=== PATIENT | female | born 1980 | race Two or more races ===

== ENCOUNTER 2020-02-01 12:14 | Outpatient (CLI) | payer OTHER | END 2020-02-01 13:32 | disposition home or self-care (01) | LOC: NST 12:14 | PROVIDERS: ATTEND Obstetrics & Gynecology Maternal & Fetal Medicine | DX: Z34.83 Encounter for supervision of other normal pregnancy, third trimester (principal) ==

== ENCOUNTER 2020-02-04 09:46 | Outpatient (CLI) | payer OTHER | END 2020-02-04 14:14 | disposition home or self-care (01) | LOC: NST 09:46 | PROVIDERS: ATTEND Obstetrics & Gynecology Maternal & Fetal Medicine | DX: Z34.83 Encounter for supervision of other normal pregnancy, third trimester (principal) ==

== ENCOUNTER 2020-02-11 08:30 | Outpatient (CLI) | payer OTHER | END 2020-02-11 09:00 | disposition home or self-care (01) | LOC: NST 08:30 | PROVIDERS: ATTEND Obstetrics & Gynecology Maternal & Fetal Medicine | DX: Z34.83 Encounter for supervision of other normal pregnancy, third trimester (principal) ==

== ENCOUNTER 2020-02-14 10:45 | Outpatient (CLI) | payer OTHER | END 2020-02-14 11:47 | disposition home or self-care (01) | LOC: NST 10:45 | PROVIDERS: ATTEND Obstetrics & Gynecology Maternal & Fetal Medicine | DX: Z34.83 Encounter for supervision of other normal pregnancy, third trimester (principal) ==